=== PATIENT | male | born 1945 | race Caucasian/White ===

== ENCOUNTER 2020-03-17 11:00 | Emergency (ER) | payer OTHER ==
[~2020-03-17] VITALS: Ht 172.7 cm; Wt 90.7 kg
[~2020-03-17 11:00] MED LIST: AMBIEN5 MG; AUGMENTIN 125-150 ML; AVANDAMET 1 MG/1 TAB; AVANDAMET 2 MG/1 TA1; FLEXERIL5 MG; LANTUS100 U/ML; LEVAQUIN500 MG; LISINOPRIL2.5 MG; PRILOSEC20 MG; TOPROL XL25 MG; WELLBUTRIN75 MG; XANAX0.25 MG; [UNRECOGNIZED DRUG - SUPPLY]
[2020-03-17] MEDS ORDERED: BACITRACIN1 EACH TOP (12:55)
[2020-03-17] MEDS ORDERED: INTESTINEX680 M2 PO (12:55)
[2020-03-17] MEDS ORDERED: AMOX1TAB5 PO (12:55)
== END 2020-03-17 13:04 | disposition home or self-care (01) ==
LOC: ER 11:00
DX: S50.312A Abrasion of left elbow, initial encounter (principal); E11.622 Type 2 diabetes mellitus with other skin ulcer; L89.029 Pressure ulcer of left elbow, unspecified stage; W22.8XXA Striking against or struck by other objects, initial encounter; Y93.89 Activity, other specified; Y92.89 Other specified places as the place of occurrence of the external cause; Y99.8 Other external cause status; Z79.4 Long term (current) use of insulin

== ENCOUNTER 2025-05-25 11:50 | Inpatient (IN) | payer OTHER ==
[~2025-05-25] VITALS: Ht 170.2 cm; Wt 68.0 kg
[~2025-05-25 11:50] MED LIST changes: +AMOX1TAB5 PO; +BACITRACIN1 EACH TOP; +CEFDINIR300 MG PO; +FUROSEMIDE20 MG PO; +Ferro-Plex CAPLET PO; +INTESTINEX680 M1 PO; +INTESTINEX680 M2 PO; +PRE PROTEIN1 EACH PO; +VITAMIN B-121000 MCG PO
[2025-05-25] MEDS ORDERED: FARXIGA10 MG PO (13:10)
[2025-05-25] MEDS ORDERED: ZOLOFT100 MG PO (13:11)
[2025-05-25] MEDS ORDERED: ABILIFY5 MG PO (13:11)
[2025-05-25 17:26] LABS: BASO % 0.4 % (0.1-1.2); EOS # 0.07 (0.04-0.54); EOS % 0.5 % (0.7-7.0); LYMPH # 1.46 (1.18-3.74); LYMPH % 9.5 % (19.3-53.1); MEAN PLATELET VOLUME 9.60 fl (9.4-12.4); MONO # 0.90 (0.24-0.82); MONO % 5.9 % (4.7-12.5); NEUT # 12.72 (1.56-6.13); NEUT % 83.2 % (34.0-71.1); RED CELL DISTRIBUTION WIDTH 16.1 % (11.6-14.4)
[2025-05-25 17:35] LABS: ERYTHROCYTE SEDIMENTATION RATE > 130 mm/hr (0-20)
[2025-05-25 17:44] LABS: INR 1.14
[2025-05-25 17:48] LABS: ALT/SGPT 23.0 U/L (12-78); AST/SGOT 17.0 U/L (15-37); BILIRUBIN TOTAL 0.4 mg/dL (0.3-1.2); BUN CREA RATIO 27.0 (7.0-25.0); CREATININE SERUM 1.32 mg/dL (0.70-1.30); GFR 52.19; GLOBULINA 6.5 G/DL (2.4-3.5); GLUCOSE FASTING 188.0 mg/dL (65-100); OSMOLALITY SERUM 289.0 MOSM/KG (275-295)
[2025-05-25] MEDS ORDERED: CEFTRIAXONE SODIUM 1,000 MG VIAL IV ONE (19:30)
[2025-05-25] MEDS ORDERED: 0.9 % SODIUM CHLORIDE 1,000 ML IV ONE (19:30)
[2025-05-25] MEDS ORDERED: CEFTRIAXONE SODIUM 1,000 MG VIAL ONE (19:35)
[2025-05-25 20:48] LABS: URINE APPEARANCE Clear; URINE BILIRRUBIN Negative (NEGATIVE); URINE BLOOD Large; URINE COLOR Orange; URINE KETONE Negative (NEGATIVE); URINE LEUKOCYTE Moderate; URINE NITRATE Negative; URINE UROBILINOGEN 0.2 E.U./dl
[2025-05-25 20:49] LABS: URINE BACTERIA 1512.0 uL (0.0-1933); URINE EPITHELIAL CELLS 64.6 uL (0.0-38.8)
[2025-05-25 21:28] LABS: URINE CAST 0.44 uL (0.0-1.40); URINE GLUCOSE >=1000 MG/DL (NEGATIVE); URINE PROTEIN 300 (NEGATIVE); URINE RBC > 10558.9 uL (0.0-20.8); URINE WBC > 5548.3 uL (0.0-23.2)
[2025-05-25] MEDS ORDERED: INSULIN LISPRO 1,000 UNIT/10 ML UNITS SUBCUTANEO PRN (21:45)
[2025-05-25] MEDS ORDERED: DEXTROSE 50 % IN WATER 0.5 G/ML DISP.SYRIN IV PRN (21:45)
[2025-05-26 04:25] VITALS: BP 135/84; O2SAT 100
[2025-05-26 06:53] VITALS: BP 100/61; O2SAT 97
[2025-05-26] MEDS ORDERED: SERTRALINE HCL 100 MG TABLET PO SCH (09:00)
[2025-05-26] MEDS ORDERED: CEFTRIAXONE SODIUM 2,000 MG in 0.9 % SODIUM CHLORIDE 100 ML IV SCH (09:00)
[2025-05-26] MEDS ORDERED: METOPROLOL SUCCINATE 25 MG TAB.SR.24H PO SCH (09:00)
[2025-05-26] MEDS ORDERED: PATIENTS OWN MEDICATION (MEDICAMENTO EN PISO) PO SCH ×2 (09:00→21:00)
[2025-05-26 10:15] VITALS: BP 93/60; O2SAT 98
[2025-05-26 15:06] LABS: BUN CREA RATIO 23.0 (7.0-25.0); CREATININE SERUM 1.05 mg/dL (0.70-1.30); GFR 67.96; GLUCOSE FASTING 132.0 mg/dL (65-100); OSMOLALITY SERUM 285.0 MOSM/KG (275-295)
[2025-05-26] MEDS ORDERED: ATORVASTATIN CALCIUM 40 MG TABLET PO SCH (17:00)
[2025-05-26] MEDS ORDERED: AMINO ACIDS/PROTEIN HYDROLYS 30 ML BLIST.PACK PO SCH (17:00)
[2025-05-26 17:57] VITALS: BP 107/74
[2025-05-27 01:48] VITALS: BP 107/69; O2SAT 99
[2025-05-27 06:23] LABS: BASO % 0.7 % (0.1-1.2); EOS # 0.37 (0.04-0.54); EOS % 2.9 % (0.7-7.0); LYMPH # 2.29 (1.18-3.74); LYMPH % 18.0 % (19.3-53.1); MEAN PLATELET VOLUME 10.40 fl (9.4-12.4); MONO # 0.82 (0.24-0.82); MONO % 6.5 % (4.7-12.5); NEUT # 9.05 (1.56-6.13); NEUT % 71.3 % (34.0-71.1); RED CELL DISTRIBUTION WIDTH 16.2 % (11.6-14.4)
[2025-05-27 09:51] VITALS: BP 126/70; O2SAT 99
[2025-05-27 21:33] VITALS: BP 95/60; O2SAT 98
[2025-05-28 03:09] VITALS: BP 107/70; O2SAT 98
[2025-05-28] MEDS ORDERED: FINASTERIDE 5 MG TABLET PO SCH (09:00)
[2025-05-28] MEDS ORDERED: TAMSULOSIN HCL 0.4 MG CAP PO SCH (09:00)
[2025-05-28 10:34] VITALS: BP 101/64; O2SAT 96
[2025-05-28 18:28] VITALS: BP 102/70; O2SAT 96
[2025-05-29 02:46] VITALS: BP 111/70; O2SAT 92
[2025-05-29 11:08] VITALS: BP 135/64; O2SAT 94
== END 2025-05-29 16:27 | disposition home or self-care (01) | DRG 690 ==
LOC: ER 11:51 → MEDJ 22:08
PROVIDERS: Physician Assistant Medical; ADMIT Student in an Organized Health Care Education/Training Program; ATTEND Student in an Organized Health Care Education/Training Program
PROC: BW21YZZ Computerized Tomography (CT Scan) of Abdomen and Pelvis using Other Contrast (ICD-10-PCS; principal; 2025-05-25)
DX: N39.0 Urinary tract infection, site not specified (principal); N17.8 Other acute kidney failure; I50.30 Unspecified diastolic (congestive) heart failure; B96.29 Other Escherichia coli [E. coli] as the cause of diseases classified elsewhere; R31.0 Gross hematuria; D72.828 Other elevated white blood cell count; I11.0 Hypertensive heart disease with heart failure; I48.91 Unspecified atrial fibrillation

== ENCOUNTER 2025-06-02 05:54 | Inpatient (IN) | payer OTHER ==
[~2025-06-02] VITALS: Ht 177.8 cm; Wt 68.0 kg
[~2025-06-02 05:54] MED LIST changes: +ABILIFY5 MG PO; +FARXIGA10 MG PO; +ZOLOFT100 MG PO
--- NOTE | 2025-06-02 06:15 | NUR ---
SE RECIBE PACIENTE EN AMBULANCIA ALERTA Y DESORIENTADO X3 EN COMPANIA DE FAMILIAR QUIEN REFIERE QUE DESDE EL PASADO VIERNES COMENZO CON DESORIENTACION Y ANA CONGESTION. SE MONITOREAN S/V Y SE UBICA PACIENTE.
[2025-06-02] MEDS ORDERED: PIPERACILLIN/TAZOBACTAM SODIUM 2.25 GM VIAL IV ONE (07:45)
[2025-06-02 10:59] LABS: BASO % 0.3 % (0.1-1.2); EOS # 0.06 (0.04-0.54); EOS % 0.7 % (0.7-7.0); LYMPH # 1.85 (1.18-3.74); LYMPH % 20.6 % (19.3-53.1); MEAN PLATELET VOLUME 9.60 fl (9.4-12.4); MONO # 0.42 (0.24-0.82); MONO % 4.7 % (4.7-12.5); NEUT # 6.56 (1.56-6.13); NEUT % 73.3 % (34.0-71.1); RED CELL DISTRIBUTION WIDTH 16.2 % (11.6-14.4)
--- NOTE | 2025-06-02 11:00 | NUR ---
SE ORIENTA PACIENTE Y A FAMILIAR SOBRE TX MEDIOC Y NUBIA REFIERE ENTENDER Y ACEPTAR EL MISMO. SE PROCEDE A LIAM MUESTRAS DE LAB. BAJO MEIDDAS ASEPTICAS. SEPROCEDE A CANALIZAR PACIENTE BAJO MEIDDAS ASEPTICAS ISACC DE ERITEMA Y EDEMA. SE PROCEDE A ADMINISTRAR MEDICAMENTO SEGUNNORDEN MEDICA VBAJO MEIDDAS ASEPTICAS.
[2025-06-02 11:33] LABS: INR 1.15
[2025-06-02 11:35] LABS: COVID-19 AG NEGATIVE (NEGATIVE)
[2025-06-02 11:47] LABS: ALT/SGPT 33.0 U/L (12-78); AST/SGOT 46.0 U/L (15-37); BILIRUBIN TOTAL 0.32 mg/dL (0.3-1.2); BUN CREA RATIO 40.0 (7.0-25.0); CREATININE SERUM 1.34 mg/dL (0.70-1.30); GFR 51.29; GLOBULINA 6.2 G/DL (2.4-3.5); GLUCOSE FASTING 105.0 mg/dL (65-100); OSMOLALITY SERUM 292.0 MOSM/KG (275-295)
[2025-06-02 12:07] LABS: TSH 3.05 uIU/mL (0.358-3.74)
[2025-06-02 17:02] VITALS: BP 110/70
[2025-06-02] MEDS ORDERED: IPRATROPIUM BROMIDE 0.5 MG/2.5 ML AMPUL.NEB IH SCH (18:29)
[2025-06-02] MEDS ORDERED: FAMOTIDINE/PF 20 MG in 0.9 % SODIUM CHLORIDE 100 ML IV SCH (18:44)
[2025-06-02] MEDS ORDERED: OSELTAMIVIR PHOSPHATE 75 MG CAPSULE PO SCH (18:49)
[2025-06-02] MEDS ORDERED: ACETAMINOPHEN 500 MG GEL..CAP PO SCH (20:00)
[2025-06-02 21:04] LABS: URINE APPEARANCE Clear; URINE BACTERIA 32.3 uL (0.0-1933); URINE BILIRRUBIN Negative (NEGATIVE); URINE BLOOD NHT; URINE COLOR Yellow; URINE EPITHELIAL CELLS 30.4 uL (0.0-38.8); URINE GLUCOSE 250 MG/DL (NEGATIVE); URINE KETONE Trace (NEGATIVE); URINE LEUKOCYTE Trace; URINE NITRATE Negative; URINE PROTEIN 30 (NEGATIVE); URINE RBC 14.5 uL (0.0-20.8); URINE UROBILINOGEN 0.2 E.U./dl; URINE WBC 33.3 uL (0.0-23.2)
[2025-06-02 21:29] LABS: URINE CAST 1.31 uL (0.0-1.40)
[2025-06-03 08:18] VITALS: BP 107/72; O2SAT 96
[2025-06-03] MEDS ORDERED: ENOXAPARIN SODIUM 40 MG/0.4 ML SYRINGE SUBCUTANEO SCH (09:00)
[2025-06-03] MEDS ORDERED: METOPROLOL SUCCINATE 25 MG TAB.SR.24H PO SCH (09:00)
[2025-06-03] MEDS ORDERED: CLONAZEPAM 0.5 MG TABLET PO ONE (21:30)
[2025-06-03 21:56] VITALS: BP 107/63
[2025-06-04 02:50] VITALS: BP 96/62; O2SAT 97
[2025-06-04 06:14] LABS: BASO % 0.3 % (0.1-1.2); EOS # 0.11 (0.04-0.54); EOS % 0.8 % (0.7-7.0); LYMPH # 1.93 (1.18-3.74); LYMPH % 14.7 % (19.3-53.1); MEAN PLATELET VOLUME 9.70 fl (9.4-12.4); MONO # 0.53 (0.24-0.82); MONO % 4.0 % (4.7-12.5); NEUT # 10.47 (1.56-6.13); NEUT % 79.6 % (34.0-71.1); RED CELL DISTRIBUTION WIDTH 16.7 % (11.6-14.4)
[2025-06-04 06:43] LABS: BUN CREA RATIO 39.0 (7.0-25.0); CREATININE SERUM 0.98 mg/dL (0.70-1.30); GFR 73.59; GLUCOSE FASTING 55.0 mg/dL (65-100); OSMOLALITY SERUM 288.0 MOSM/KG (275-295)
[2025-06-04 09:04] VITALS: BP 109/71; O2SAT 96
[2025-06-04] MEDS ORDERED: CEFEPIME HCL 2,000 MG VIAL IV SCH (21:00)
[2025-06-04 23:16] VITALS: BP 100/70; O2SAT 97
[2025-06-05 01:32] VITALS: BP 105/61; O2SAT 98
[2025-06-05 08:07] LABS: BASO % 0.5 % (0.1-1.2); EOS # 0.14 (0.04-0.54); EOS % 1.4 % (0.7-7.0); LYMPH # 1.91 (1.18-3.74); LYMPH % 19.3 % (19.3-53.1); MEAN PLATELET VOLUME 10.00 fl (9.4-12.4); MONO # 0.44 (0.24-0.82); MONO % 4.4 % (4.7-12.5); NEUT # 7.30 (1.56-6.13); NEUT % 73.7 % (34.0-71.1); RED CELL DISTRIBUTION WIDTH 16.7 % (11.6-14.4)
[2025-06-05 09:13] VITALS: BP 116/74; O2SAT 98
[2025-06-05] MEDS ORDERED: IPRATROPIUM BROMIDE 0.5 MG/2.5 ML AMPUL.NEB IH SCH (13:00)
[2025-06-05 18:08] VITALS: BP 120/84; O2SAT 96
[2025-06-05 23:58] LABS: ALT/SGPT 20.0 U/L (12-78); AST/SGOT 26.0 U/L (15-37); BILIRUBIN TOTAL 0.41 mg/dL (0.3-1.2); BUN CREA RATIO 23.0 (7.0-25.0); CREATININE SERUM 1.42 mg/dL (0.70-1.30); GFR 47.97; GLOBULINA 5.3 G/DL (2.4-3.5); GLUCOSE FASTING 178.0 mg/dL (65-100); OSMOLALITY SERUM 282.0 MOSM/KG (275-295)
[2025-06-06 01:22] VITALS: BP 90/62; O2SAT 97
[2025-06-06 09:33] VITALS: BP 99/64; O2SAT 98
[2025-06-06] MEDS ORDERED: 0.9 % SODIUM CHLORIDE 1,000 ML IV SCH (11:45)
[2025-06-06 18:03] VITALS: BP 98/60
[2025-06-07 03:29] VITALS: BP 90/65; O2SAT 97
[2025-06-07 06:56] LABS: BUN CREA RATIO 25.0 (7.0-25.0); CREATININE SERUM 1.27 mg/dL (0.70-1.30); GFR 54.56; GLUCOSE FASTING 121.0 mg/dL (65-100); OSMOLALITY SERUM 282.0 MOSM/KG (275-295)
[2025-06-07 07:03] LABS: ALT/SGPT 20.0 U/L (12-78); AST/SGOT 24.0 U/L (15-37); BILIRUBIN TOTAL 0.48 mg/dL (0.3-1.2); BUN CREA RATIO 25.0 (7.0-25.0); CREATININE SERUM 1.3 mg/dL (0.70-1.30); GFR 53.11; GLOBULINA 5.2 G/DL (2.4-3.5); GLUCOSE FASTING 126.0 mg/dL (65-100); OSMOLALITY SERUM 284.0 MOSM/KG (275-295)
[2025-06-07 07:24] LABS: BASO % 0.5 % (0.1-1.2); EOS # 0.26 (0.04-0.54); EOS % 3.2 % (0.7-7.0); LYMPH # 1.61 (1.18-3.74); LYMPH % 20.1 % (19.3-53.1); MEAN PLATELET VOLUME 10.30 fl (9.4-12.4); MONO # 0.51 (0.24-0.82); MONO % 6.4 % (4.7-12.5); NEUT # 5.48 (1.56-6.13); NEUT % 68.3 % (34.0-71.1); RED CELL DISTRIBUTION WIDTH 16.5 % (11.6-14.4)
[2025-06-07 09:04] VITALS: BP 90/60; O2SAT 96
[2025-06-07 18:32] VITALS: BP 104/70
== END 2025-06-07 17:00 | disposition home or self-care (01) | DRG 194 ==
LOC: ER 05:54 → SEC-K 19:24 → MEDI 19:24 → MEDJ 06-04 17:04
PROVIDERS: General Practice; Internal Medicine Infectious Disease; ADMIT Student in an Organized Health Care Education/Training Program; ATTEND Student in an Organized Health Care Education/Training Program
PROC: 4A033R1 Measurement of Arterial Saturation, Peripheral, Percutaneous Approach (ICD-10-PCS; principal; 2025-06-02)
PROC: 3E0F7GC Introduction of Other Therapeutic Substance into Respiratory Tract, Via Natural or Artificial Opening (ICD-10-PCS; 2025-06-02)
PROC: BW28ZZZ Computerized Tomography (CT Scan) of Head (ICD-10-PCS; 2025-06-02)
PROC: BB24ZZZ Computerized Tomography (CT Scan) of Bilateral Lungs (ICD-10-PCS; 2025-06-02)
PROC: 8E0ZXY6 Isolation (ICD-10-PCS; 2025-06-03)
DX: J11.00 Influenza due to unidentified influenza virus with unspecified type of pneumonia (principal); I50.1 Left ventricular failure, unspecified; I50.30 Unspecified diastolic (congestive) heart failure; N39.0 Urinary tract infection, site not specified; N17.9 Acute kidney failure, unspecified; F03.90 Unspecified dementia, unspecified severity, without behavioral disturbance, psychotic disturbance, mood disturbance, and anxiety; R41.82 Altered mental status, unspecified; J18.9 Pneumonia, unspecified organism; J11.1 Influenza due to unidentified influenza virus with other respiratory manifestations; E11.8 Type 2 diabetes mellitus with unspecified complications; R31.0 Gross hematuria; I27.20 Pulmonary hypertension, unspecified; I07.1 Rheumatic tricuspid insufficiency; I34.0 Nonrheumatic mitral (valve) insufficiency; Z95.810 Presence of automatic (implantable) cardiac defibrillator; I48.91 Unspecified atrial fibrillation